=== PATIENT | female | born 1985 | race Hispanic/Latino ===

== ENCOUNTER 2016-10-05 15:55 | Emergency (ER) | payer OTHER ==
[~2016-10-05] VITALS: Ht 157.5 cm; Wt 72.6 kg
[~2016-10-05 15:55] MED LIST: ADDERALL 10 MG10 MG PO; ADVIL100 MG PO; ATIVAN1 MG PO; CATAPRES0.2 MG PO; CLONIDINE1 EAC1 TD; KLONOPIN2 MG PO; METHADONE HCL10 MG PO; METHADONE HCL40 MG PO; ONDANSETRON ODT8 MG PO; PROMETHAZINE HC25 M1 PO; SUBOXONE 8 MG-1 EAC1 SL; ZOFRAN ODT4 MG PO
[2016-10-05] MEDS ORDERED: AMPHETAMINE SAL20 MG PO (16:11)
[2016-10-05] MEDS ORDERED: CLONAZEPAM2 MG PO (16:11)
--- OUTSIDE RECORDS SUMMARY | 2016-10-05 16:15 | XMS ---
Demographics + + + | Address | [address] | | | [address] | | | [place] [address] | + + + | Preferred Language | Unknown | + + + | Marital Status | Unknown | + + + | Worship Affiliation | Unknown | + + + | Race | Unknown | + + + | Ethnic Group | Unknown | + + + Author + + + | Author | [facility] | + + + | Organization | [facility] | + + + | Address | [address] | | | [place] [address] | + + + | Phone | | + + + Care Team Providers + + + + | Care Instant Print Operator Name | Role | Phone | + + + + Unavailable | Unavailable | + + + + PROBLEMS Unknown Problems ALLERGIES + + + + +---------+ | Substance | Reaction | Event Type | Date | Status | + + + + +---------+ | Juan David | Unknown | Non Drug | Jul, | Unknown | | | | Allergy | | | + + + + +---------+ SOCIAL HISTORY No smoking Hx information available PLAN OF CARE + +---------+ | Activity | Details | + +---------+ +---+ | | +---+ + + + | Follow Up | prn Reason:null | + + + VITAL SIGNS + + + + | Height | 62.5 in | 2016-08-02 | + + + + | Weight | 163.0 lbs | 2016-08-02 | + + + + | BMI | 29.33 kg/m2 | 2016-08-02 | + + + + | Temperature | 98.6 degrees Fahrenheit | 2016-08-02 | + + + + | Heart Rate | 80 /min | 2016-08-02 | + + + + | Blood pressure systolic | 138 mm Hg | 2016-08-02 | + + + + | Blood pressure diastolic | 73 mm Hg | 2016-08-02 | + + + + MEDICATIONS + + + + + + + +--------+ | Medicati | Instruct | Dosage | Frequenc | Start | End Date | Duration | Status | | on | ions | | y | Date | | | | + + + + + + + +--------+ | Tylenol | | | | | | | Active | | 80 | | | | | | | | | MG/0.8ML | | | | | | | | + + + + + + + +--------+ | Adderall | Orally | 1 tablet | 12h | | | 30 | Active | | 20 MG | Twice a | in the | | | | | | | | day | morning | | | | | | + + + + + + + +--------+ | KCL 20 | po Daily | 1 | | 10 Apr, | | 30 | Active | | mEq | with | | | 2017 | | | | | | food | | | | | | | + + + + + + + +--------+ | Klonopin | Orally | 1 tablet | 12h | 10 Apr, | | 30 | Active | | 2 MG | Twice a | | | 2016 | | | | | | day | | | | | | | + + + + + + + +--------+ | Lorazepa | | | | | | | Active | | m 2 | | | | | | | | | MG/ML | | | | | | | | + + + + + + + +--------+ RESULTS No Results PROCEDURES + + + + + | Procedure | Date Ordered | Related Diagnosis | Body Site | + + + + + | Est Level III | August 02, 2016 | | | | Intermediate | | | | + + + + + IMMUNIZATIONS No Known Immunizations"
--- OUTSIDE RECORDS SUMMARY | 2016-10-05 16:25 | XMS ---
Demographics + + + | Address | [address] | | | [address] | | | [place] [address] | + + + | Preferred Language | Unknown | + + + | Marital Status | Unknown | + + + | Sabianist Affiliation | Unknown | + + + | Race | Unknown | + + + | Ethnic Group | Unknown | + + + Author + + + | Author | [facility] | + + + | Organization | [facility] | + + + | Address | [address] | | | [place] [address] | + + + | Phone | [phone] | + + + Care Team Providers + + + + | Care Automotive Wholesale Parts Advisor Name | Role | Phone | + + + + Unavailable | Unavailable | + + + + PROBLEMS Unknown Problems ALLERGIES Unknown Allergies SOCIAL HISTORY No smoking Hx information available PLAN OF CARE VITAL SIGNS MEDICATIONS Unknown Medications RESULTS No Results PROCEDURES No Known procedures IMMUNIZATIONS No Known Immunizations"
--- OUTSIDE RECORDS SUMMARY | 2016-10-05 16:25 | XMS ---
Demographics + + + | Address | [address] [place] [address] [address] | | | [place] [address] | + + + | Preferred Language | Unknown | + + + | Marital Status | Unknown | + + + | Druze Affiliation | Unknown | + + + | Race | Unknown | + + + | Ethnic Group | Unknown | + + + Author + + + | Author | [facility] | + + + | Organization | [facility] | + + + | Address | [address] | | | [place] [address] | + + + | Phone | | + + + Care Team Providers + + + + | Care Sales And Marketing Manager Name | Role | Phone | + + + + Unavailable | Unavailable | + + + + PROBLEMS Unknown Problems ALLERGIES Unknown Allergies SOCIAL HISTORY No smoking Hx information available PLAN OF CARE VITAL SIGNS MEDICATIONS Unknown Medications RESULTS No Results PROCEDURES No Known procedures IMMUNIZATIONS No Known Immunizations"
--- OUTSIDE RECORDS SUMMARY | 2016-10-05 16:25 | XMS ---
Demographics + + + | Address | [address] [place] [address] [address] | | | [place] [address] | + + + | Preferred Language | Unknown | + + + | Marital Status | Unknown | + + + | Presybeterian Affiliation | Unknown | + + + | Race | Unknown | + + + | Ethnic Group | Unknown | + + + Author + + + | Author | [facility] | + + + | Organization | [facility] | + + + | Address | [address] | | | [place] [address] | + + + | Phone | | + + + Care Team Providers + + + + | Care Wireless Sales Manager Name | Role | Phone | + + + + Unavailable | Unavailable | + + + + PROBLEMS Unknown Problems ALLERGIES Unknown Allergies SOCIAL HISTORY No smoking Hx information available PLAN OF CARE VITAL SIGNS MEDICATIONS + + + + + + [...] MG | Twice a | | | 2017 | | | | | | day | | | | | | | + + + + + + + +--------+ | Lorazepa | | | | | | | Active | | m 2 | | | | | | | | | MG/ML | | | | | | | | + + + + + + + +--------+ | Suboxone | Sublingu | 1 tablet | 24h | | | | Active | | 8-2 MG | al Once | under | | | | | | | | a day | the | | | | | | | | | tongue | | | | | | | | | and | | | | | | | | | allow to | | | | | | | | | | | | | | | | | | dissolve | | | | | | + [...] | mEq | with | | | 2016 | | | | | | food | | | | | | | + + + + + + + +--------+ RESULTS No Results PROCEDURES No Known procedures IMMUNIZATIONS No Known Immunizations"
--- OUTSIDE RECORDS SUMMARY | 2016-10-05 16:25 | XMS ---
Demographics + + + | Address | [address] | | | [address] | | | [place] [address] | + + + | Preferred Language | Unknown | + + + | Marital Status | Unknown | + + + | Mu-Ism Affiliation | Unknown | + + + | Race | Unknown | + + + | Ethnic Group | Unknown | + + + Author + + + | Author | [facility] | + + + | Organization | [facility] | + + + | Address | [address] | | | [place] [address] | + + + | Phone | | + + + Care Team Providers + + + + | Care Floorperson Name | Role | Phone | + + + + Unavailable | Unavailable | + + + + PROBLEMS Unknown Problems ALLERGIES Unknown Allergies SOCIAL HISTORY No smoking Hx information available PLAN OF CARE VITAL SIGNS MEDICATIONS Unknown Medications RESULTS No Results PROCEDURES No Known procedures IMMUNIZATIONS No Known Immunizations"
--- OUTSIDE RECORDS SUMMARY | 2016-10-05 16:26 | XMS ---
Demographics + + + | Address | [address] | | | [address] | | | [place] [address] | + + + | Preferred Language | Unknown | + + + | Marital Status | Unknown | + + + | Mosque Affiliation | Unknown | + + + | Race | Unknown | + + + | Ethnic Group | Unknown | + + + Author + + + | Author | [facility] | + + + | Organization | [facility] | + + + | Address | [address] | | | [place] [address] | + + + | Phone | | + + + Care Team Providers + + + + | Care Kit Planner Name | Role | Phone | + + + + Unavailable | Unavailable | + + + + PROBLEMS Unknown Problems ALLERGIES + + + + +---------+ | Substance | Reaction | Event Type | Date | Status | + + + + +---------+ | Juan David | Unknown | Non Drug | 11 Aug, 2016 | Unknown | | | | Allergy | | | + + + + +---------+ SOCIAL HISTORY No smoking Hx information available PLAN OF CARE + +---------+ | Activity | Details | + +---------+ +---+ | | +---+ + + + | Follow Up | 4 Weeks Reason:null | + + + VITAL SIGNS + + + + | Height | 62.5 in | 2016-09-04 | + + + + | Weight | 158.6 lbs | 2016-09-04 | + + + + | BMI | 28.54 kg/m2 | 2016-09-04 | + + + + | Temperature | 98.2 degrees Fahrenheit | 2016-09-04 | + + + + | Heart Rate | 80 /min | 2016-09-04 | + + + + | Blood pressure systolic | 145 mm Hg | 2016-09-04 | + + + + | Blood pressure diastolic | 92 mm Hg | 2016-09-04 | + + + + MEDICATIONS + [...] + + + + | Est Level II | September 04, 2016 | | | | Limited | | | | + + + + + IMMUNIZATIONS No Known Immunizations"
--- OUTSIDE RECORDS SUMMARY | 2016-10-05 16:26 | XMS ---
Demographics + + + | Address | [address] | | | [address] | | | [place] [address] | + + + | Preferred Language | Unknown | + + + | Marital Status | Unknown | + + + | Christianity Affiliation | Unknown | + + + | Race | Unknown | + + + | Ethnic Group | Unknown | + + + Author + + + | Author | [facility] | + + + | Organization | [facility] | + + + | Address | [address] | | | [place] [address] | + + + | Phone | | + + + Care Team Providers + + + + | Care Silver Holloware Assembler Name | Role | Phone | + + + + Unavailable | Unavailable | + + + + PROBLEMS Unknown Problems ALLERGIES Unknown Allergies SOCIAL HISTORY No smoking Hx information available PLAN OF CARE VITAL SIGNS MEDICATIONS Unknown Medications RESULTS No Results PROCEDURES No Known procedures IMMUNIZATIONS No Known Immunizations"
== END 2016-10-05 17:08 | disposition home or self-care (01) ==
LOC: ED 15:55
DX: Z76.0 Encounter for issue of repeat prescription (principal); F11.20 Opioid dependence, uncomplicated; F17.200 Nicotine dependence, unspecified, uncomplicated
CPT/HCPCS: 99281

== ENCOUNTER 2016-12-27 17:08 | Emergency (ER) | payer OTHER ==
[~2016-12-27] VITALS: Ht 157.5 cm; Wt 72.6 kg
[~2016-12-27 17:08] MED LIST changes: +AMPHETAMINE SAL20 MG PO; +CLONAZEPAM2 MG PO
[2016-12-27] MEDS ORDERED: PROMETHAZINE HC25 M1 PO (17:42)
== END 2016-12-27 18:04 | disposition home or self-care (01) ==
LOC: ED 17:08
DX: O99.321 Drug use complicating pregnancy, first trimester (principal); F11.23 Opioid dependence with withdrawal; Z3A.01 Less than 8 weeks gestation of pregnancy; F17.200 Nicotine dependence, unspecified, uncomplicated; Z79.899 Other long term (current) drug therapy; Z90.49 Acquired absence of other specified parts of digestive tract
CPT/HCPCS: 99283

== ENCOUNTER 2017-03-21 11:47 | Emergency (ER) | payer OTHER ==
[~2017-03-21] VITALS: Ht 157.5 cm; Wt 76.2 kg
--- OUTSIDE RECORDS SUMMARY | ~2017-03-21 | XMS ---
Demographics + + + | Address | [address] [place] [address] | | | [place] [address] | + + + | Preferred Language | Unknown | + + + | Marital Status | Unknown | + + + | Judaism Affiliation | Unknown | + + + | Race | Unknown | + + + | Ethnic Group | Unknown | + + + Author + + + | Author | [facility] | + + + | Organization | [facility] | + + + | Address | [address] | | | [place] [address] | + + + | Phone | | + + + Care Team Providers + + + + | Care Hand Fretted Instrument Maker Name | Role | Phone | + + + + Unavailable | Unavailable | + + + + PROBLEMS Unknown Problems ALLERGIES No Information SOCIAL HISTORY Never Assessed PLAN OF CARE VITAL SIGNS MEDICATIONS Unknown Medications RESULTS No Results PROCEDURES No Known procedures IMMUNIZATIONS No Known Immunizations MEDICAL (GENERAL) HISTORY + + +-------+ | Type | Description | Date | + + +-------+ | Medical History | Chronic Pain | | + + +-------+ | Medical History | add | | + + +-------+ | Medical History | anxiety | | + + +-------+ | Surgical History | gall stones | | + + +-------+ | Surgical History | C section x3 | | + + +-------+ | Surgical History | gall bladder | | + + +-------+ | Hospitalization History | ER visit withdrawl | 06/11 | + + +-------+"
--- OUTSIDE RECORDS SUMMARY | ~2017-03-21 | XMS ---
Demographics + + + | Address | [address] | | | [address] | | | [place] [address] | + + + | Preferred Language | Unknown | + + + | Marital Status | Unknown | + + + | Restorationism Affiliation | Unknown | + + + | Race | Unknown | + + + | Ethnic Group | Unknown | + + + Author + + + | Author | [facility] | + + + | Organization | [facility] | + + + | Address | [address] | | | [place] [address] | + + + | Phone | | + + + Care Team Providers + + + + | Care Cad Designer Name | Role | Phone | + + + + Unavailable | Unavailable | + + + + PROBLEMS Unknown Problems ALLERGIES Unknown Allergies SOCIAL HISTORY No smoking Hx information available PLAN OF CARE VITAL SIGNS MEDICATIONS Unknown Medications RESULTS No Results PROCEDURES No Known procedures IMMUNIZATIONS No Known Immunizations"
--- OUTSIDE RECORDS SUMMARY | ~2017-03-21 | XMS ---
Demographics + + + | Address | [address] | | | [address] | | | [place] [address] | + + + | Preferred Language | Unknown | + + + | Marital Status | Unknown | + + + | Roman Catholic Affiliation | Unknown | + + + | Race | Unknown | + + + | Ethnic Group | Unknown | + + + Author + + + | Author | [facility] | + + + | Organization | [facility] | + + + | Address | [address] | | | [place] [address] | + + + | Phone | | + + + Care Team Providers + + + + | Care Window Treatment Installer Name | Role | Phone | + + + + Unavailable | Unavailable | + + + + PROBLEMS Unknown Problems ALLERGIES Unknown Allergies SOCIAL HISTORY No smoking Hx information available PLAN OF CARE VITAL SIGNS MEDICATIONS Unknown Medications RESULTS No Results PROCEDURES No Known procedures IMMUNIZATIONS No Known Immunizations"
--- OUTSIDE RECORDS SUMMARY | ~2017-03-21 | XMS ---
Demographics + + + | Address | [address] [place] [address] | | | [place] [address] | + + + | Preferred Language | Unknown | + + + | Marital Status | Unknown | + + + | Mandaen Affiliation | Unknown | + + + | Race | Unknown | + + + | Ethnic Group | Unknown | + + + Author + + + | Author | [facility] | + + + | Organization | [facility] | + + + | Address | [address] | | | [place] [address] | + + + | Phone | | + + + Care Team Providers + + + + | Care Car Worker Helper Name | Role | Phone | + [...]
--- OUTSIDE RECORDS SUMMARY | ~2017-03-21 | XMS ---
Demographics + + + | Address | [address] | | | [address] | | | [place] [address] | + + + | Preferred Language | Unknown | + + + | Marital Status | Unknown | + + + | Pentecostal Affiliation | Unknown | + + + | Race | Unknown | + + + | Ethnic Group | Unknown | + + + Author + + + | Author | [facility] | + + + | Organization | [facility] | + + + | Address | [address] | | | [place] [address] | + + + | Phone | | + + + Care Team Providers + + + + | Care Tip Length Checker Name | Role | Phone | + + + + Unavailable | Unavailable | + + + + PROBLEMS Unknown Problems ALLERGIES Unknown Allergies SOCIAL HISTORY No smoking Hx information available PLAN OF CARE VITAL SIGNS MEDICATIONS Unknown Medications RESULTS No Results PROCEDURES No Known procedures IMMUNIZATIONS No Known Immunizations"
--- OUTSIDE RECORDS SUMMARY | ~2017-03-21 | XMS ---
Demographics + + + | Address | [address] | | | [address] | | | [place] [address] | + + + | Preferred Language | Unknown | + + + | Marital Status | Unknown | + + + | Sabianism Affiliation | Unknown | + + + | Race | Unknown | + + + | Ethnic Group | Unknown | + + + Author + + + | Author | [facility] | + + + | Organization | [facility] | + + + | Address | [address] | | | [place] [address] | + + + | Phone | | + + + Care Team Providers + + + + | Care Intellectual Property Paralegal Name | Role | Phone | + + + + Unavailable | Unavailable | + + + + PROBLEMS Unknown Problems ALLERGIES + + + + +---------+ | Substance | Reaction | Event Type | Date | Status | + + + + +---------+ | Juan David | Unknown | Non Drug | Sep, | Unknown | | | | Allergy | | | + + + + +---------+ SOCIAL HISTORY No smoking Hx information available PLAN OF CARE + +---------+ | Activity | Details | + +---------+ +---+ | | +---+ + + + | Follow Up | prn Reason:null | + + + | Pending Test | TSH | + + + | Pending Test | Sedimentation Rate-Westergren | + + + | Pending Test | Comp. Metabolic Panel (14) | + + + | Pending Test | CBC | + + + | Pending Test | Urine Drug Screen, Medical | + + + | Pending Test | Serum FE Panel | + + + VITAL SIGNS + + + + | Height | 62.5 in | 2016-10-05 | + + + + | Weight | 159.2 lbs | 2016-10-05 | + + + + | BMI | 28.65 kg/m2 | 2016-10-05 | + + + + | Temperature | 98.0 degrees Fahrenheit | 2016-10-05 | + + + + | Heart Rate | 63 /min | 2016-10-05 | + + + + | Blood pressure systolic | 112 mm Hg | 2016-10-05 | + + + + | Blood pressure diastolic | 63 mm Hg | 2016-10-05 | + + + + MEDICATIONS + [...] + + | Est Level III | Oct 05, 2016 | | | | Intermediate | | | | + + + + + IMMUNIZATIONS No Known Immunizations"
--- OUTSIDE RECORDS SUMMARY | ~2017-03-21 | XMS ---
Demographics + + + | Address | [address] | | | [address] | | | [place] [address] | + + + | Preferred Language | Unknown | + + + | Marital Status | Unknown | + + + | Baptism Affiliation | Unknown | + + + | Race | Unknown | + + + | Ethnic Group | Unknown | + + + Author + + + | Author | [facility] | + + + | Organization | [facility] | + + + | Address | [address] | | | [place] [address] | + + + | Phone | | + + + Care Team Providers + + + + | Care Feather Separator Name | Role | Phone | + + + + Unavailable | Unavailable | + + + + PROBLEMS Unknown Problems ALLERGIES Unknown Allergies SOCIAL HISTORY No smoking Hx information available PLAN OF CARE VITAL SIGNS MEDICATIONS Unknown Medications RESULTS No Results PROCEDURES No Known procedures IMMUNIZATIONS No Known Immunizations"
--- OUTSIDE RECORDS SUMMARY | ~2017-03-21 | XMS ---
Demographics + + + | Address | [address] | | | [address] | | | [place] [address] | + + + | Preferred Language | Unknown | + + + | Marital Status | Unknown | + + + | Mormon Affiliation | Unknown | + + + | Race | Unknown | + + + | Ethnic Group | Unknown | + + + Author + + + | Author | [facility] | + + + | Organization | [facility] | + + + | Address | [address] | | | [place] [address] | + + + | Phone | | + + + Care Team Providers + + + + | Care Twisting Frame Fixer Name | Role | Phone | + + + + Unavailable | Unavailable | + + + + PROBLEMS Unknown Problems ALLERGIES + + + + +---------+ | Substance | Reaction | Event Type | Date | Status | + + + + +---------+ | Juan David | Unknown | Non Drug | 18 Sep, 2016 | Unknown | | | | [...] + | Height | 62.5 in | 2016-10-12 | + + + + | Weight | 152.4 lbs | 2016-10-12 | + + + + | BMI | 27.43 kg/m2 | 2016-10-12 | + + + + | Temperature | 98.3 degrees Fahrenheit | 2016-10-12 | + + + + | Heart Rate | 111 /min | 2016-10-12 | + + + + | Blood pressure systolic | 154 mm Hg | 2016-10-12 | + + + + | Blood pressure diastolic | 94 mm Hg | 2016-10-12 | + + + + MEDICATIONS + [...] + | Est Level III | Oct 12, 2016 | | | | Intermediate | | | | + + + + + IMMUNIZATIONS No Known Immunizations"
--- OUTSIDE RECORDS SUMMARY | ~2017-03-21 | XMS ---
Demographics + + + | Address | [address] [place] [address] | | | [place] [address] | + + + | Preferred Language | Unknown | + + + | Marital Status | Unknown | + + + | Anabaptist Affiliation | Unknown | + + + | Race | Unknown | + + + | Ethnic Group | Unknown | + + + Author + + + | Author | [facility] | + + + | Organization | [facility] | + + + | Address | [address] | | | [place] [address] | + + + | Phone | | + + + Care Team Providers + + + + | Care Bottle Dealer Name | Role | Phone | + + + + Unavailable | Unavailable | + + + + PROBLEMS Unknown Problems ALLERGIES No Known Allergies SOCIAL HISTORY Never Assessed PLAN OF CARE + +---------+ | Activity | Details | + +---------+ +---+ | | +---+ + + + | Follow Up | 4 Weeks Reason:null | + + + | Pending Test | MRI : Lumbar Spine | + + + VITAL SIGNS + + + + | Height | 62.5 in | 2016-11-09 | + + + + | Weight | 161.6 lbs | 2016-11-09 | + + + + | BMI | 29.08 kg/m2 | 2016-11-09 | + + + + | Temperature | 97.9 degrees Fahrenheit | 2016-11-09 | + + + + | Heart Rate | 78 /min | 2016-11-09 | + + + + | Blood pressure systolic | 120 mm Hg | 2016-11-09 | + + + + | Blood pressure diastolic | 82 mm Hg | 2016-11-09 | + + + + MEDICATIONS + + + + +--------+ + +--------+ | Medicati | Instruct | Dosage | Frequenc | Start | End Date | Duration | Status | | on | ions | | y | Date | | | | + + + + +--------+ + +--------+ | Methadon | | | | | | | Active | | e HCl | | | | | | | | + + + + +--------+ + +--------+ | Adderall | Orally | 1 tablet | 12h | | | 30 | Active | | 20 MG | Twice a | in the | | | | | | | | day | morning | | | | | | + + + + +--------+ + +--------+ RESULTS No Results PROCEDURES No [...]
--- OUTSIDE RECORDS SUMMARY | ~2017-03-21 | XMS ---
Demographics + + + | Address | [address] | | | [address] | | | [place] [address] | + + + | Preferred Language | Unknown | + + + | Marital Status | Unknown | + + + | Shinto Affiliation | Unknown | + + + | Race | Unknown | + + + | Ethnic Group | Unknown | + + + Author + + + | Author | [facility] | + + + | Organization | [facility] | + + + | Address | [address] | | | [place] [address] | + + + | Phone | | + + + Care Team Providers + + + + | Care Barrow Worker Name | Role | Phone | + + + + Unavailable | Unavailable | + + + + PROBLEMS Unknown Problems ALLERGIES Unknown Allergies SOCIAL HISTORY No smoking Hx information available PLAN OF CARE VITAL SIGNS MEDICATIONS Unknown Medications RESULTS No Results PROCEDURES No Known procedures IMMUNIZATIONS No Known Immunizations"
--- OUTSIDE RECORDS SUMMARY | ~2017-03-21 | XMS ---
Demographics + + + | Address | [address] | | | [address] | | | [place] [address] | + + + | Preferred Language | Unknown | + + + | Marital Status | Unknown | + + + | Tenriism Affiliation | Unknown | + + + | Race | Unknown | + + + | Ethnic Group | Unknown | + + + Author + + + | Author | [facility] | + + + | Organization | [facility] | + + + | Address | [address] | | | [place] [address] | + + + | Phone | | + + + Care Team Providers + + + + | Care Graduation Coach Name | Role | Phone | + + + + Unavailable | Unavailable | + + + + PROBLEMS Unknown Problems ALLERGIES Unknown Allergies SOCIAL HISTORY No smoking Hx information available PLAN OF CARE VITAL SIGNS MEDICATIONS Unknown Medications RESULTS No Results PROCEDURES No Known procedures IMMUNIZATIONS No Known Immunizations"
--- OUTSIDE RECORDS SUMMARY | ~2017-03-21 | XMS ---
Demographics + + + | Address | [address] | | | [address] | | | [place] [address] | + + + | Preferred Language | Unknown | + + + | Marital Status | Unknown | + + + | Zoroastrianism Affiliation | Unknown | + + + | Race | Unknown | + + + | Ethnic Group | Unknown | + + + Author + + + | Author | [facility] | + + + | Organization | [facility] | + + + | Address | [address] | | | [place] [address] | + + + | Phone | | + + + Care Team Providers + + + + | Care Beam Racker Name | Role | Phone | + + + + Unavailable | Unavailable | + + + + PROBLEMS Unknown Problems ALLERGIES Unknown Allergies SOCIAL HISTORY No smoking Hx information available PLAN OF CARE VITAL SIGNS MEDICATIONS Unknown Medications RESULTS No Results PROCEDURES No Known procedures IMMUNIZATIONS No Known Immunizations"
[2017-03-21] MEDS ORDERED: ZOFRAN ODT4 MG PO (12:17)
== END 2017-03-21 12:29 | disposition home or self-care (01) ==
LOC: ED 11:47
DX: O99.322 Drug use complicating pregnancy, second trimester (principal); F11.23 Opioid dependence with withdrawal; Z87.891 Personal history of nicotine dependence; Z79.899 Other long term (current) drug therapy; Z3A.22 22 weeks gestation of pregnancy
CPT/HCPCS: 99283

== ENCOUNTER 2019-06-01 22:12 | Emergency (ER) | payer OTHER ==
[~2019-06-01] VITALS: Ht 157.5 cm; Wt 81.2 kg
== END 2019-06-02 00:09 | disposition home or self-care (01) ==
LOC: ED 22:12
DX: R10.11 Right upper quadrant pain (principal); F41.9 Anxiety disorder, unspecified; F17.200 Nicotine dependence, unspecified, uncomplicated
CPT/HCPCS: 80053; 81001; 83690; 84703; 85025; 99284

== ENCOUNTER 2021-07-09 10:55 | Emergency (ER) | payer OTHER ==
[~2021-07-09] VITALS: Ht 160 cm; Wt 74.4 kg
== END 2021-07-09 13:55 | disposition home or self-care (01) ==
LOC: ED 10:55
DX: S40.012A Contusion of left shoulder, initial encounter (principal); W06.XXXA Fall from bed, initial encounter; F17.200 Nicotine dependence, unspecified, uncomplicated; Z79.899 Other long term (current) drug therapy
CPT/HCPCS: 73030; 99283-25

== ENCOUNTER 2023-02-03 07:38 | Emergency (ER) | payer OTHER ==
[~2023-02-03] VITALS: Ht 160 cm; Wt 71.8 kg
[2023-02-03 08:30] LABS: HEMOGLOBIN 8.8 g/dL (12.0-18.0); MCH 24.2 (27-36)
[2023-02-03 08:32] LABS: BASOPHILS 0.5 % (0-2); EOSINOPHILS 1.6 % (0-6); HEMATOCRIT 27.5 % (35.0-50.0); LYMPHOCYTES 24.5 % (24-44); MCHC 31.9 g/dl (30-36); MCV 75.8 fl (81-99); MONOCYTES 8.6 % (0-12); NEUTROPHILS 64.8 % (39-80); PLATELET COUNT 219 K/uL (140-440); RBC 3.62 M/ul (4.3-5.7); RDW 17.5 (10.5-15.0)
[2023-02-03 08:37] LABS: PARTIAL THROMBOPLASTIN TIME 26.3 Sec (22.9-41.3)
[2023-02-03 08:38] LABS: INR 1.04 (0.80-1.30); PROTIME 13.1 Sec (11.2-14.2)
[2023-02-03 08:49] LABS: ALBUMIN 2.9 g/dL (3.4-5.0); ALBUMIN/GLOBULIN RATIO 0.83 (1.1-2.4); ANION GAP 10.3 (7-21); BILIRUBIN, TOTAL 0.3 ng/dL (0.2-1.0); BUN/CREATININE RATIO 21.56 (6.0-28.6); CALCIUM 8.4 mg/dL (8.5-10.1); CREATININE, SERUM 0.51 mg/dL (0.55-1.02); POTASSIUM 3.3 mmol/L (3.5-5.1); PROTEIN, TOTAL 6.4 g/dL (6.4-8.2)
[2023-02-03 09:33] VITALS: BP 112/78
== END 2023-02-03 09:33 | disposition home or self-care (01) ==
LOC: ED 07:38
PROVIDERS: Emergency Medicine
DX: S60.222A Contusion of left hand, initial encounter (principal); S80.12XA Contusion of left lower leg, initial encounter; S80.11XA Contusion of right lower leg, initial encounter; S70.12XA Contusion of left thigh, initial encounter; D64.9 Anemia, unspecified; F17.200 Nicotine dependence, unspecified, uncomplicated; W10.9XXA Fall (on) (from) unspecified stairs and steps, initial encounter
CPT/HCPCS: 36415; 80053; 85025; 85060; 85610; 85730; 99283; A9270

== ENCOUNTER 2024-12-02 11:35 | Emergency (ER) | payer OTHER ==
[~2024-12-02] VITALS: Ht 160 cm; Wt 70.4 kg
[2024-12-02 11:55] VITALS: BP 167/102
== END 2024-12-02 12:03 | disposition home or self-care (01) ==
LOC: ED 11:35
DX: S01.01XA Laceration without foreign body of scalp, initial encounter (principal); W01.198A Fall on same level from slipping, tripping and stumbling with subsequent striking against other object, initial encounter; F17.200 Nicotine dependence, unspecified, uncomplicated; Z79.899 Other long term (current) drug therapy
CPT/HCPCS: 99282